=== PATIENT | female | born 1990 | race Caucasian/White ===

== ENCOUNTER 2016-11-26 14:04 | Emergency (ER) | payer OTHER ==
[~2016-11-26] VITALS: Ht 157.5 cm; Wt 65.6 kg
[~2016-11-26 14:04] MED LIST: BIRTH CONTROL; CIPRO500 MG PO; CYSTEX TABLET1 EAC1 PO; FLEXERIL10 MG PO; IBUPROFEN800 MG PO; LORTAB 5-325 M1 EACH PO; MOTRIN600 MG PO; MOTRIN800 MG PO; NAPROSYN500 MG PO; NOHOMEMEDS; PERCOCET 5/31 TABLET PO; PRENATAL TABLE1 EAC3 PO; TYLENOL EXTRA500 MG PO; ZOFRAN ODT4 MG PO
[2016-11-26 15:22] LABS: HEMATOCRIT 42.4 % (36.0-46.0); MCH 29.2 PG (29.0-34.0); MCHC 32.8 G/DL (30.0-36.0); MCV 89.1 FL (83-99); MEAN PLAT.VOLUME 10.4 uM^3 (9.5-12.4); PLATELET COUNT 236 K/uL (156-360); RBC DIS.WIDTH-CV 12.9 % (11.8-14.6); RBC DIS.WIDTH-SD 42.5 % (39-53); RED BLOOD COUNT 4.76 M/uL (3.80-5.20); WHITE BLOOD COUNT 10.4 K/uL (4.1-10.2)
[2016-11-26 15:32] LABS: CHLORIDE 107 mEq/L (99-109); POTASSIUM 3.9 mEq/L (3.7-5.4); SODIUM 138 mEq/L (136-147)
[2016-11-26 15:35] LABS: GLUCOSE 92 mg/dL (70-99)
[2016-11-26 15:36] LABS: ANION GAP 9 MEQ/L (2-14)
[2016-11-26 15:37] LABS: TOTAL BILIRUBIN 0.7 mg/dL (0.0-1.0)
[2016-11-26 15:38] LABS: ALKALINE PHOSPHATASE 61 IU/L (3-129); GFR ESTIMATE (CALCULATED) > 59 mL/min/
[2016-11-26 15:40] LABS: UREA NITROGEN (BUN) 12 mg/dL (9-23)
[2016-11-26 15:51] LABS: INTERNAL CONTROL VALID? YES; MONOSPOT (MONONUCLEOSIS SEROL) POSITIVE
[2016-11-26 16:15] VITALS: BP 158/85
== END 2016-11-26 16:15 | disposition home or self-care (01) ==
LOC: EME 14:04
PROVIDERS: Nurse Practitioner Family
DX: B27.90 Infectious mononucleosis, unspecified without complication (principal); R59.0 Localized enlarged lymph nodes; F17.200 Nicotine dependence, unspecified, uncomplicated
CPT/HCPCS: 80053; 85027; 86308; 99281; 99284

== ENCOUNTER 2018-03-26 13:57 | Emergency (ER) | payer OTHER ==
[~2018-03-26] VITALS: Ht 157.5 cm; Wt 63.3 kg
[2018-03-26 15:03] LABS: HEMATOCRIT 40.2 % (36.0-46.0); HEMOGLOBIN 13.5 G/DL (11.9-15.5); MCH 30.8 PG (29.0-34.0); MCHC 33.6 G/DL (30.0-36.0); MCV 91.6 FL (83-99); PLATELET COUNT 287 K/uL (156-360); RBC DIS.WIDTH-CV 12.9 % (11.8-14.6); RBC DIS.WIDTH-SD 43.9 % (39-53); RED BLOOD COUNT 4.39 M/uL (3.80-5.20); WHITE BLOOD COUNT 8.1 K/uL (4.1-10.2)
[2018-03-26 15:11] LABS: ALBUMIN 4.1 g/dL (3.2-4.8); CHLORIDE 107 mEq/L (99-109); SODIUM 139 mEq/L (136-147)
[2018-03-26 15:13] LABS: GLUCOSE 90 mg/dL (70-99); TOTAL PROTEIN 7.3 g/dL (6.4-8.3)
[2018-03-26 15:17] LABS: ALKALINE PHOSPHATASE 45 IU/L (3-129); GFR ESTIMATE (CALCULATED) > 59 mL/min/
[2018-03-26 15:19] LABS: AST (GOT) 16 IU/L (2-34); UREA NITROGEN (BUN) 13 mg/dL (9-23)
[2018-03-26 15:20] LABS: ALT (GPT) 25 IU/L (3-49)
[2018-03-26 15:26] LABS: APPEARANCE CLEAR ((CLEAR)); BILIRUBIN NEGATIVE; BLOOD SMALL; COLOR YELLOW ((YELLOW)); GLUCOSE (STRIP) NEGATIVE; KETONES 5; LEUKOCYTES SMALL; NITRITE NEGATIVE; PROTEIN (STRIP) 30; SPECIFIC GRAVITY 1.031 (1.000-1.030)
[2018-03-26 15:27] LABS: QUANTITATIVE HCG < 4.0 MIU/ML
[2018-03-26 15:31] LABS: LIPASE 10 U/L (1.0-51.0)
[2018-03-26 18:42] LABS: BACTERIA NONE SEEN /HPF; CALCIUM OXALATE CRYSTALS 1+ /HPF; EPITHELIAL CELLS RARE /HPF; MUCUS TRACE /LPF; RED BLOOD CELLS 0-5 /HPF (0-5); UCUL ADDED? NO; WHITE BLOOD CELLS 0-5 /HPF (0-5)
[2018-03-26] MEDS ORDERED: LEVSIN-SL0.125 MG SL (18:48)
[2018-03-26] MEDS ORDERED: ZOFRAN ODT4 MG PO (18:48)
[2018-03-26 19:27] VITALS: BP 130/74
== END 2018-03-26 19:28 | disposition home or self-care (01) ==
LOC: EME 13:57
DX: R10.11 Right upper quadrant pain (principal); R11.2 Nausea with vomiting, unspecified; Z88.0 Allergy status to penicillin
CPT/HCPCS: 76705; 80053; 81003; 83690; 84702; 85027; 99281; 99284